=== PATIENT | male | born 2000 | race Caucasian/White ===

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

== ENCOUNTER 2018-02-12 19:27 | Emergency (ER) | payer OTHER ==
[~2018-02-12] VITALS: Ht 182.9 cm; Wt 70.9 kg
[2018-02-12] MEDS ORDERED: ONDANSETRON 4 MG ORAL DISINTEGRATING TAB (Q0162 PER 1MG) PO ONE ×2 (20:15→21:30)
--- NOTE | 2018-02-12 20:53 | REPVR ---
EXAM: CT Head Without Contrast EXAM DATE/TIME: 02/12/2018 8:19 PM CLINICAL HISTORY: 17 years old, male; Injury or trauma; Fall; Additional info: Fall/loc TECHNIQUE: Axial computed tomography images of the head/brain without contrast. All CT scans at this facility use at least one of these dose optimization techniques: automated exposure control; mA and/or kV adjustment per patient size (includes targeted exams where dose is matched to clinical indication); or iterative reconstruction. COMPARISON: CT Head without contrast 08/23/2017 3:25 PM FINDINGS: Brain: No acute intracranial hemorrhage. No CT evidence of acute cortical infarct. No intracranial mass or midline shift. Ventricles, cisterns, and sulci are normal in size for age. Bones/joints: No calvarial fracture or destructive process. Sinuses: Mucosal thickening or fluid is present in the sphenoid sinus. Mastoid air cells: Mastoid air cells are normally aerated. Orbits: Imaged orbits are unremarkable. Soft tissues: No focal extracranial soft tissue swelling. IMPRESSION: No acute or concerning focal intracranial abnormality. Electronically signed by: Paul Aguilar On 02/12/2018 20:52:50 PM
--- NOTE | 2018-02-12 20:54 | REPVR ---
EXAM: CT Cervical Spine Without Contrast EXAM DATE/TIME: 02/12/2018 8:19 PM CLINICAL HISTORY: 17 years old, male; Injury or trauma; Fall; Initial encounter; Blunt trauma; Additional info: Fall/loc TECHNIQUE: Axial computed tomography images of the cervical spine without intravenous contrast. All CT scans at this facility use at least one of these dose optimization techniques: automated exposure control; mA and/or kV adjustment per patient size (includes targeted exams where dose is matched to clinical indication); or iterative reconstruction. Coronal and sagittal reformatted images were created and reviewed. COMPARISON: No relevant prior studies available. FINDINGS: Smooth reversal of normal cervical lordosis, without segmental malalignment. Vertebral body height is maintained at all levels. No acute fracture. No destructive or blastic bone lesion. Hyoid bone and laryngeal cartilage structures appear normal. Intervertebral disc spaces are appropriate for age. Prevertebral soft tissues show no concerning abnormality. Imaged lung apices are unremarkable. IMPRESSION: No acute fracture or traumatic segmental cervical malalignment. Reversal of cervical lordosis which could be positional or may be related to muscle spasm and guarding Electronically signed by: Paul Aguilar On 02/12/2018 20:54:07 PM
[2018-02-12] MEDS ORDERED: ZOFR4TAB14 SL (21:13)
[2018-02-12] MEDS ORDERED: ACET1TAB55 PO (21:28)
[2018-02-12] MEDS ORDERED: IBUP-1114 PO (21:28)
[2018-02-12 21:40] VITALS: BP 100/70
== END 2018-02-12 21:47 | disposition home or self-care (01) ==
LOC: M ED 19:27
DX: S93.401A Sprain of unspecified ligament of right ankle, initial encounter (principal); S90.31XA Contusion of right foot, initial encounter; W19.XXXA Unspecified fall, initial encounter; Y92.009 Unspecified place in unspecified non-institutional (private) residence as the place of occurrence of the external cause; F17.210 Nicotine dependence, cigarettes, uncomplicated
CPT/HCPCS: 70450; 72125; 99283; Q0162

== ENCOUNTER 2019-12-16 19:21 | Emergency (ER) | payer OTHER ==
[~2019-12-16] VITALS: Ht 182.9 cm; Wt 73.7 kg
[~2019-12-16 19:21] MED LIST: ACET1TAB55 PO; IBUP-1114 PO; ZOFR4TAB14 SL
[2019-12-16] MEDS ORDERED: ANUSOL HC 25MG SUPP PR STA (20:14)
[2019-12-16 20:38] LABS: BASO # 0.1 10^3/uL (0.0-0.2); BASO % 0.8 % (0.0-1.0); EOS % 13.2 % (0.0-3.0); HEMATOCRIT 42.3 % (42.0-52.0); HEMOGLOBIN 14.9 g/dl (13.5-17.5); LYMPH % 27.4 % (24.0-44.0); MEAN CORPUSCULAR HEMOGLOBIN 32.3 pg (27.0-33.0); MEAN CORPUSCULAR HGB CONC 35.2 g/dl (32.0-36.5); MEAN CORPUSCULAR VOLUME 91.6 fl (80.0-96.0); MONO # 0.7 10^3/uL (0.0-0.8); MONO % 9.2 % (0.0-5.0); NEUTROPHILS # 3.6 10^3/uL (1.5-8.5); NEUTROPHILS % 49.1 % (36.0-66.0); PLATELET COUNT, AUTOMATED 230 10^3/uL (150-450); RED BLOOD COUNT 4.62 10^6/uL (4.30-6.10); WHITE BLOOD COUNT 7.3 10^3/uL (4.0-10.0)
[2019-12-16 20:50] LABS: INR 1.07; PROTHROMBIN TIME 14.1 SECONDS (12.5-14.3)
[2019-12-16] MEDS ORDERED: ANUS25SU PR (21:36)
[2019-12-16] MEDS ORDERED: COLA100C5 PO (21:36)
[2019-12-16 21:46] VITALS: BP 127/68
== END 2019-12-16 21:47 | disposition home or self-care (01) ==
LOC: M ED 19:21
DX: K92.1 Melena (principal); F17.210 Nicotine dependence, cigarettes, uncomplicated

== ENCOUNTER 2020-02-17 09:25 | Emergency (ER) | payer OTHER ==
[~2020-02-17] VITALS: Ht 182.9 cm; Wt 72.3 kg
[~2020-02-17 09:25] MED LIST changes: +ANUS25SU PR; +COLA100C5 PO
[2020-02-17] MEDS ORDERED: MORPHINE 4 MG/ML 1ML VIAL/SYRINGE (J2270) IV ONE (10:00)
--- NOTE | 2020-02-17 10:17 | REP ---
INDICATION: ? dislocation COMPARISON: None. TECHNIQUE: Internal rotation, external rotation, and Y view. FINDINGS: No acute fracture or dislocation. The acromioclavicular and glenohumeral joints are intact. No periarticular calcifications or degenerative changes are appreciated. Sub acromial space is normal. Surrounding soft tissues are unremarkable. IMPRESSION: Normal right shoulder radiographs. No acute fracture or dislocation <Electronically signed by Mat Decker > 02/17/20 [id number]
[2020-02-17] MEDS ORDERED: KETO10TAB PO (10:47)
[2020-02-17 10:58] VITALS: BP 135/87
== END 2020-02-17 11:01 | disposition home or self-care (01) ==
LOC: M ED 09:25
DX: S43.101A Unspecified dislocation of right acromioclavicular joint, initial encounter (principal); X58.XXXA Exposure to other specified factors, initial encounter; Y92.39 Other specified sports and athletic area as the place of occurrence of the external cause; Y93.9 Activity, unspecified; Y99.9 Unspecified external cause status
CPT/HCPCS: 73030; 99284; J2270